=== PATIENT | female | born 1985 | race Caucasian/White ===

== ENCOUNTER 2019-07-15 16:59 | Inpatient (IN) | payer OTHER ==
[~2019-07-15] VITALS: Ht 172.7 cm; Wt 94.3 kg
[2019-08-18] MEDS ORDERED: PRENATAL + DHA1 EAC1 PO (08:16)
== END 2019-08-19 12:56 | DRG 807 ==
LOC: OB/GYN 08-13 14:30 → LDR 08-17 14:37 → OB/GYN 08-17 14:37
PROVIDERS: ADMIT Obstetrics & Gynecology Maternal & Fetal Medicine
PROC: 10E0XZZ Delivery of Products of Conception, External Approach (ICD-10-PCS; principal; 2019-08-17)
PROC: 0HQ9XZZ Repair Perineum Skin, External Approach (ICD-10-PCS; 2019-08-17)
PROC: 4A1HXCZ Monitoring of Products of Conception, Cardiac Rate, External Approach (ICD-10-PCS; 2019-08-17)
DX: O70.0 First degree perineal laceration during delivery (principal); Z37.0 Single live birth; Z3A.39 39 weeks gestation of pregnancy

== ENCOUNTER 2019-08-13 12:54 | Outpatient (CLI) | payer OTHER | END 2019-08-13 13:39 | disposition home or self-care (01) | LOC: NST 12:54 | DX: Z34.83 Encounter for supervision of other normal pregnancy, third trimester (principal) ==

== ENCOUNTER 2019-08-17 06:29 | Outpatient (CLI) | payer OTHER ==
[2019-08-18] MEDS ORDERED: PRENATAL + DHA1 EAC1 PO (08:16)
== END 2019-08-17 10:35 | disposition home or self-care (01) ==
LOC: NST 06:29
DX: Z34.83 Encounter for supervision of other normal pregnancy, third trimester (principal)